=== PATIENT | male | born 1965 | race Caucasian/White ===

== ENCOUNTER 2017-12-28 03:23 | Inpatient (IN) | payer OTHER ==
[2017-12-28] MEDS: METHYLPREDNISOLONE 125 MG INJ IV (04:02)
[2017-12-28 04:46] LABS: ADD MAN DIFF? NO
[2017-12-28 04:48] LABS: WHITE BLOOD COUNT 10.1 10^3/ul (4.8-10.8)
[2017-12-28 04:48] LABS: BASOPHIL # 0.1 10^3/ul (0.0-0.1); BASOPHILS % 0.5 % (0.0-2.0); EOSINOPHILS # 0.3 10^3/ul (0.0-0.5); EOSINOPHILS % 3.4 % (0.0-7.0); HEMATOCRIT 43.1 % (42.0-52.0); HEMOGLOBIN 14.5 g/dl (14.0-18.0); LYMPHOCYTES # 2.4 10^3/ul (0.8-2.9); LYMPHOCYTES % 23.3 % (15.0-51.0); MEAN CORPUSCULAR HEMOGLOBIN 29.3 pg (29.0-33.0); MEAN CORPUSCULAR HGB CONC 33.6 g/dl (32.0-37.0); MEAN CORPUSCULAR VOLUME 87.1 fl (82.0-101.0); MEAN PLATELET VOLUME 12.6 fl (7.4-10.4); MONOCYTE # 0.8 10^3/ul (0.3-0.9); MONOCYTES % 7.8 % (0.0-11.0); NEUTROPHIL # 6.6 10^3/ul (1.6-7.5); NEUTROPHILS % 64.6 % (39.0-77.0); PLATELET COUNT 206 10^3/UL (140-415); RED BLOOD COUNT 4.95 10^6/ul (4.70-6.10); RED CELL DISTRIBUTION WIDTH 13.2 % (11.5-14.5)
[2017-12-28 05:07] LABS: INR 0.95; PROTIME 12.8 Sec (11.9-14.9)
[2017-12-28 05:08] LABS: PARTIAL THROMBOPLASTIN TIME 27.5 Sec (25.0-35.0)
[2017-12-28 05:12] LABS: ALANINE AMINOTRANSFERASE 105 IU/L (13-69); ALBUMIN 4.4 g/dl (3.3-4.9); ALBUMIN/GLOBULIN RATIO 1.33; ALKALINE PHOSPHATASE 140 IU/L (42-121); ANION GAP 20 (8-16); ASPARTATE AMINO TRANSFERASE 84 IU/L (15-46); BILIRUBIN,INDIRECT 0.1 mg/dl (0-1.1); BILIRUBIN,TOTAL 0.1 mg/dl (0.2-1.3); BLOOD UREA NITROGEN 16 mg/dl (7-20); CALCIUM 9.1 mg/dl (8.4-10.2); CARBON DIOXIDE 27 mmol/L (21-31); CHLORIDE 100 mmol/L (97-110); CREATININE 0.63 mg/dl (0.61-1.24); GLUCOSE 327 mg/dl (70-220); POTASSIUM 3.7 mmol/L (3.5-5.1); SODIUM 143 mmol/L (135-144); TOTAL PROTEIN 7.7 g/dl (6.1-8.1)
[2017-12-28 05:15] LABS: LACTIC ACID 2.4 mmol/L (0.5-2.0)
[2017-12-28 05:23] LABS: TROPONIN-I 0.021 ng/ml (0.00-0.12)
[2017-12-28] MEDS: FUROSEMIDE 40 MG INJ IV (05:45)
[2017-12-28] MEDS: NITROGLYCERIN 2% 1 GM OINT PKT TD (05:46)
[2017-12-28] MEDS: CEFEPIME 2GM/50 ML (PMX) 50 ML IVPB (05:46)
[2017-12-28] MEDS: IPRATROPIUM (NEB) 0.5 MG/2.5 ML AMP INH (05:56)
[2017-12-28] MEDS: ALBUTEROL 0.083% (NEB) 2.5 MG/3 ML AMP INH (05:56)
[2017-12-28] MEDS ORDERED: VANCOMYCIN IV PER PHARMACY XX (06:30)
[2017-12-28] MEDS ORDERED: NACL 0.9% 3 ML SYG IV (06:30)
[2017-12-28] MEDS ORDERED: BISACODYL (EC) 5 MG TAB PO (06:30)
[2017-12-28] MEDS ORDERED: DOCUSATE SODIUM 100 MG CAP PO (06:30)
[2017-12-28] MEDS: VANCOMYCIN 1 GM (PMX) 250 ML IVPB (06:44)
[2017-12-28 08:10] LABS: B-TYPE NATRIURETIC PEPTIDE 749 PG/ML (0-125)
[2017-12-28 08:36] LABS: LACTIC ACID 2.1 mmol/L (0.5-2.0)
[2017-12-28 10:24] LABS: HEMOGLOBIN A1C 10.3 % (0-5.9)
[2017-12-28 10:34] LABS: CHOLESTEROL 232 mg/dl (100-200)
[2017-12-28 10:34] LABS: CHOL/HDL RATIO 6.2 RATIO; HDL CHOLESTEROL 37 mg/dl (28-71); LDL CHOLESTEROL,CALCULATED 146 mg/dl; TRIGLYCERIDES 243 mg/dl (0-149)
[2017-12-28 11:14] LABS: LACTIC ACID 2.2 mmol/L (0.5-2.0)
[2017-12-28] MEDS: LOSARTAN 50 MG TAB PO ×2 (12:00→20:52)
[2017-12-28] MEDS: ASPIRIN 81 MG TAB PO (12:15)
[2017-12-28] MEDS: FAMOTIDINE 20 MG TAB PO (12:15)
[2017-12-28] MEDS: VANCOMYCIN 1 GM in 250 ML IVPB ×2 (12:18→19:58)
[2017-12-28] MEDS: CEFEPIME 1GM/50 ML (PMX) 50 ML IVPB ×2 (14:22→22:26)
[2017-12-28 15:34] LABS: TROPONIN-I 0.014 ng/ml (0.00-0.12)
[2017-12-28] MEDS ORDERED: VANCOMYCIN 1 GM in 250 ML IVPB (18:00)
[2017-12-28] MEDS: ATORVASTATIN 20 MG TAB PO (20:52)
[2017-12-29] MEDS: VANCOMYCIN 1 GM in 250 ML IVPB ×3 (05:43→21:37)
[2017-12-29 07:26] LABS: ADD MAN DIFF? NO
[2017-12-29 07:30] LABS: WHITE BLOOD COUNT 12.8 10^3/ul (4.8-10.8)
[2017-12-29 07:30] LABS: BASOPHILS % 0.3 % (0.0-2.0); EOSINOPHILS % 0.1 % (0.0-7.0); HEMATOCRIT 38.7 % (42.0-52.0); HEMOGLOBIN 13.2 g/dl (14.0-18.0); LYMPHOCYTES # 2.4 10^3/ul (0.8-2.9); LYMPHOCYTES % 18.8 % (15.0-51.0); MEAN CORPUSCULAR HEMOGLOBIN 30.2 pg (29.0-33.0); MEAN CORPUSCULAR HGB CONC 34.1 g/dl (32.0-37.0); MEAN CORPUSCULAR VOLUME 88.6 fl (82.0-101.0); MONOCYTE # 1.1 10^3/ul (0.3-0.9); MONOCYTES % 8.5 % (0.0-11.0); NEUTROPHIL # 9.2 10^3/ul (1.6-7.5); NEUTROPHILS % 71.9 % (39.0-77.0); PLATELET COUNT 193 10^3/UL (140-415); RED BLOOD COUNT 4.37 10^6/ul (4.70-6.10); RED CELL DISTRIBUTION WIDTH 13.6 % (11.5-14.5)
[2017-12-29 07:52] LABS: ALANINE AMINOTRANSFERASE 81 IU/L (13-69); ALBUMIN 3.8 g/dl (3.3-4.9); ALBUMIN/GLOBULIN RATIO 1.11; ALKALINE PHOSPHATASE 84 IU/L (42-121); ANION GAP 18 (8-16); ASPARTATE AMINO TRANSFERASE 33 IU/L (15-46); BILIRUBIN,INDIRECT 0.3 mg/dl (0-1.1); BILIRUBIN,TOTAL 0.3 mg/dl (0.2-1.3); BLOOD UREA NITROGEN 23 mg/dl (7-20); CALCIUM 8.6 mg/dl (8.4-10.2); CARBON DIOXIDE 25 mmol/L (21-31); CHLORIDE 104 mmol/L (97-110); CREATININE 0.63 mg/dl (0.61-1.24); GLUCOSE 254 mg/dl (70-220); MAGNESIUM 2.2 mg/dl (1.7-2.5); POTASSIUM 4.1 mmol/L (3.5-5.1); SODIUM 143 mmol/L (135-144); TOTAL PROTEIN 7.2 g/dl (6.1-8.1)
[2017-12-29] MEDS: ASPIRIN 81 MG TAB PO (08:27)
[2017-12-29] MEDS: FAMOTIDINE 20 MG TAB PO (08:27)
[2017-12-29] MEDS: LOSARTAN 50 MG TAB PO (08:28)
[2017-12-29] MEDS: CEFEPIME 1GM/50 ML (PMX) 50 ML IVPB ×2 (09:41→21:36)
[2017-12-29 12:12] LABS: VANCOMYCIN,TROUGH 13.4 ug/ml (10.0-20.0)
[2017-12-29] MEDS: ATORVASTATIN 20 MG TAB PO (21:35)
[2017-12-29] MEDS: ALBUTEROL 0.083% (NEB) 2.5 MG/3 ML AMP HHN (21:51)
[2017-12-30] MEDS: ALBUTEROL 0.083% (NEB) 2.5 MG/3 ML AMP HHN (02:43)
[2017-12-30] MEDS ORDERED: GLUCOSE GEL 15 GRAM TUBE PO ×2 (03:00)
[2017-12-30] MEDS ORDERED: ALBUTEROL/IPRATROPIUM (NEB) 3 ML AMP HHN (03:00)
[2017-12-30] MEDS ORDERED: GUAIFENESIN/DM 5ML CUP PO (03:00)
[2017-12-30] MEDS ORDERED: GLUCAGON 1 MG INJ IM (03:00)
[2017-12-30] MEDS ORDERED: GLUCOSE GEL 15 GRAM TUBE BUCCAL (03:00)
[2017-12-30] MEDS ORDERED: DEXTROSE 50% 50 ML SYRINGE IV ×2 (03:00)
[2017-12-30] MEDS: VANCOMYCIN 1 GM in 250 ML IVPB ×3 (04:54→20:43)
[2017-12-30] MEDS ORDERED: hydrALAzine 20 MG INJ IV (05:30)
[2017-12-30 07:56] LABS: ADD MAN DIFF? NO
[2017-12-30] MEDS: LOSARTAN 50 MG TAB PO (08:00)
[2017-12-30] MEDS: CEFEPIME 1GM/50 ML (PMX) 50 ML IVPB ×2 (08:00→23:18)
[2017-12-30] MEDS: metFORMIN 500 MG TAB PO ×2 (08:00→17:08)
[2017-12-30] MEDS: FAMOTIDINE 20 MG TAB PO (08:00)
[2017-12-30] MEDS: ASPIRIN 81 MG TAB PO (08:00)
[2017-12-30 08:05] LABS: BASOPHIL # 0.1 10^3/ul (0.0-0.1); BASOPHILS % 0.4 % (0.0-2.0); EOSINOPHILS # 0.1 10^3/ul (0.0-0.5); EOSINOPHILS % 0.7 % (0.0-7.0); HEMOGLOBIN 13.4 g/dl (14.0-18.0); LYMPHOCYTES # 2.7 10^3/ul (0.8-2.9); LYMPHOCYTES % 20.5 % (15.0-51.0); MEAN CORPUSCULAR HEMOGLOBIN 29.5 pg (29.0-33.0); MEAN CORPUSCULAR HGB CONC 33.5 g/dl (32.0-37.0); MEAN CORPUSCULAR VOLUME 88.1 fl (82.0-101.0); MEAN PLATELET VOLUME 12.6 fl (7.4-10.4); MONOCYTE # 1.1 10^3/ul (0.3-0.9); MONOCYTES % 8.1 % (0.0-11.0); NEUTROPHIL # 9.3 10^3/ul (1.6-7.5); NEUTROPHILS % 69.9 % (39.0-77.0); PLATELET COUNT 196 10^3/UL (140-415); RED BLOOD COUNT 4.54 10^6/ul (4.70-6.10); RED CELL DISTRIBUTION WIDTH 13.7 % (11.5-14.5)
[2017-12-30 08:05] LABS: WHITE BLOOD COUNT 13.2 10^3/ul (4.8-10.8)
[2017-12-30] MEDS: INSULIN ASPART [NOVOLOG] 3 ML PEN SC ×6 (08:10→20:49)
[2017-12-30] MEDS: ENOXAPARIN 40 MG/0.4 ML SYG SC (08:11)
[2017-12-30 08:40] LABS: MAGNESIUM 1.8 mg/dl (1.7-2.5)
[2017-12-30 08:40] LABS: PHOSPHORUS 3.7 mg/dl (2.5-4.9)
[2017-12-30 08:49] LABS: ANION GAP 15 (8-16); BLOOD UREA NITROGEN 15 mg/dl (7-20); CALCIUM 8.5 mg/dl (8.4-10.2); CARBON DIOXIDE 29 mmol/L (21-31); CHLORIDE 101 mmol/L (97-110); CREATININE 0.59 mg/dl (0.61-1.24); GLUCOSE 214 mg/dl (70-220); POTASSIUM 3.9 mmol/L (3.5-5.1); SODIUM 141 mmol/L (135-144)
[2017-12-30] MEDS: INSULIN GLARGINE [LANtus] 3 ML PEN SC (12:47)
[2017-12-30] MEDS: ACETAMINOPHEN 325 MG TAB PO (20:43)
[2017-12-30] MEDS: ATORVASTATIN 20 MG TAB PO (20:43)
[2017-12-31] MEDS: ACCU-CHEK XX (02:00)
[2017-12-31] MEDS: VANCOMYCIN 1 GM in 250 ML IVPB ×3 (05:07→20:33)
[2017-12-31 07:26] LABS: ADD MAN DIFF? NO
[2017-12-31 07:37] LABS: WHITE BLOOD COUNT 10.2 10^3/ul (4.8-10.8)
[2017-12-31 07:37] LABS: BASOPHILS % 0.4 % (0.0-2.0); EOSINOPHILS # 0.2 10^3/ul (0.0-0.5); EOSINOPHILS % 1.9 % (0.0-7.0); HEMATOCRIT 40.6 % (42.0-52.0); HEMOGLOBIN 13.8 g/dl (14.0-18.0); LYMPHOCYTES # 2.9 10^3/ul (0.8-2.9); MEAN CORPUSCULAR HEMOGLOBIN 30.2 pg (29.0-33.0); MEAN CORPUSCULAR VOLUME 88.8 fl (82.0-101.0); MEAN PLATELET VOLUME 12.5 fl (7.4-10.4); MONOCYTES % 9.4 % (0.0-11.0); NEUTROPHIL # 6.1 10^3/ul (1.6-7.5); NEUTROPHILS % 59.9 % (39.0-77.0); PLATELET COUNT 202 10^3/UL (140-415); RED BLOOD COUNT 4.57 10^6/ul (4.70-6.10); RED CELL DISTRIBUTION WIDTH 13.2 % (11.5-14.5)
[2017-12-31 07:50] LABS: MAGNESIUM 1.9 mg/dl (1.7-2.5)
[2017-12-31 07:50] LABS: PHOSPHORUS 3.6 mg/dl (2.5-4.9)
[2017-12-31 07:51] LABS: ANION GAP 14 (8-16); BLOOD UREA NITROGEN 15 mg/dl (7-20); CALCIUM 8.8 mg/dl (8.4-10.2); CARBON DIOXIDE 28 mmol/L (21-31); CHLORIDE 103 mmol/L (97-110); CREATININE 0.61 mg/dl (0.61-1.24); GLUCOSE 119 mg/dl (70-220); POTASSIUM 3.8 mmol/L (3.5-5.1); SODIUM 141 mmol/L (135-144)
[2017-12-31] MEDS: INSULIN ASPART [NOVOLOG] 3 ML PEN SC ×7 (08:00→20:41)
[2017-12-31] MEDS: FAMOTIDINE 20 MG TAB PO (08:29)
[2017-12-31] MEDS: ASPIRIN 81 MG TAB PO (08:30)
[2017-12-31] MEDS: metFORMIN 500 MG TAB PO ×2 (08:30→17:41)
[2017-12-31] MEDS: INSULIN GLARGINE [LANtus] 3 ML PEN SC (08:34)
[2017-12-31] MEDS: LOSARTAN 50 MG TAB PO (08:36)
[2017-12-31] MEDS: CEFEPIME 1GM/50 ML (PMX) 50 ML IVPB ×2 (10:09→22:16)
[2017-12-31] MEDS: ENOXAPARIN 40 MG/0.4 ML SYG SC (10:17)
[2017-12-31 19:03] LABS: VANCOMYCIN,TROUGH 12.5 ug/ml (10.0-20.0)
[2017-12-31] MEDS: ATORVASTATIN 20 MG TAB PO (20:36)
[2018-01-01] MEDS: ACCU-CHEK XX (02:00)
[2018-01-01] MEDS: VANCOMYCIN 1 GM in 250 ML IVPB ×3 (05:40→20:50)
[2018-01-01 07:01] LABS: ADD MAN DIFF? NO
[2018-01-01 07:07] LABS: BASOPHIL # 0.1 10^3/ul (0.0-0.1); BASOPHILS % 0.6 % (0.0-2.0); EOSINOPHILS # 0.2 10^3/ul (0.0-0.5); HEMATOCRIT 40.9 % (42.0-52.0); HEMOGLOBIN 14.3 g/dl (14.0-18.0); LYMPHOCYTES # 2.7 10^3/ul (0.8-2.9); LYMPHOCYTES % 28.5 % (15.0-51.0); MEAN CORPUSCULAR HEMOGLOBIN 30.2 pg (29.0-33.0); MEAN CORPUSCULAR VOLUME 86.3 fl (82.0-101.0); MEAN PLATELET VOLUME 12.1 fl (7.4-10.4); MONOCYTE # 0.8 10^3/ul (0.3-0.9); MONOCYTES % 8.8 % (0.0-11.0); NEUTROPHIL # 5.7 10^3/ul (1.6-7.5); NEUTROPHILS % 59.7 % (39.0-77.0); PLATELET COUNT 199 10^3/UL (140-415); RED BLOOD COUNT 4.74 10^6/ul (4.70-6.10); RED CELL DISTRIBUTION WIDTH 13.2 % (11.5-14.5)
[2018-01-01 07:07] LABS: WHITE BLOOD COUNT 9.5 10^3/ul (4.8-10.8)
[2018-01-01 07:27] LABS: PHOSPHORUS 4.7 mg/dl (2.5-4.9)
[2018-01-01 07:27] LABS: MAGNESIUM 1.8 mg/dl (1.7-2.5)
[2018-01-01 07:35] LABS: ANION GAP 19 (8-16); BLOOD UREA NITROGEN 12 mg/dl (7-20); CARBON DIOXIDE 22 mmol/L (21-31); CHLORIDE 105 mmol/L (97-110); CREATININE 0.56 mg/dl (0.61-1.24); GLUCOSE 120 mg/dl (70-220); POTASSIUM 3.8 mmol/L (3.5-5.1); SODIUM 142 mmol/L (135-144)
[2018-01-01] MEDS: INSULIN ASPART [NOVOLOG] 3 ML PEN SC ×7 (08:00→20:54)
[2018-01-01] MEDS: LOSARTAN 50 MG TAB PO (08:22)
[2018-01-01] MEDS: metFORMIN 500 MG TAB PO ×2 (08:23→17:27)
[2018-01-01] MEDS: ASPIRIN 81 MG TAB PO (08:24)
[2018-01-01] MEDS: INSULIN GLARGINE [LANtus] 3 ML PEN SC (08:28)
[2018-01-01] MEDS: CEFEPIME 1GM/50 ML (PMX) 50 ML IVPB ×2 (08:36→20:50)
[2018-01-01] MEDS: FAMOTIDINE 20 MG TAB PO (08:41)
[2018-01-01] MEDS: ENOXAPARIN 40 MG/0.4 ML SYG SC (10:22)
[2018-01-01] MEDS: ATORVASTATIN 20 MG TAB PO (20:50)
[2018-01-02] MEDS: ACCU-CHEK XX (02:00)
[2018-01-02] MEDS: VANCOMYCIN 1 GM in 250 ML IVPB (05:17)
[2018-01-02 07:38] LABS: ADD MAN DIFF? NO
[2018-01-02 07:42] LABS: BASOPHIL # 0.1 10^3/ul (0.0-0.1); BASOPHILS % 0.7 % (0.0-2.0); EOSINOPHILS # 0.3 10^3/ul (0.0-0.5); EOSINOPHILS % 2.9 % (0.0-7.0); HEMATOCRIT 40.6 % (42.0-52.0); HEMOGLOBIN 14.1 g/dl (14.0-18.0); LYMPHOCYTES # 2.2 10^3/ul (0.8-2.9); LYMPHOCYTES % 25.3 % (15.0-51.0); MEAN CORPUSCULAR HEMOGLOBIN 30.1 pg (29.0-33.0); MEAN CORPUSCULAR HGB CONC 34.7 g/dl (32.0-37.0); MEAN CORPUSCULAR VOLUME 86.8 fl (82.0-101.0); MONOCYTE # 0.9 10^3/ul (0.3-0.9); MONOCYTES % 9.9 % (0.0-11.0); NEUTROPHIL # 5.4 10^3/ul (1.6-7.5); NEUTROPHILS % 60.9 % (39.0-77.0); PLATELET COUNT 211 10^3/UL (140-415); RED BLOOD COUNT 4.68 10^6/ul (4.70-6.10); RED CELL DISTRIBUTION WIDTH 13.2 % (11.5-14.5)
[2018-01-02 07:42] LABS: WHITE BLOOD COUNT 8.9 10^3/ul (4.8-10.8)
[2018-01-02] MEDS: INSULIN ASPART [NOVOLOG] 3 ML PEN SC ×7 (08:00→20:13)
[2018-01-02 08:08] LABS: ANION GAP 15 (8-16); BLOOD UREA NITROGEN 11 mg/dl (7-20); CALCIUM 9.2 mg/dl (8.4-10.2); CARBON DIOXIDE 25 mmol/L (21-31); CHLORIDE 105 mmol/L (97-110); CREATININE 0.61 mg/dl (0.61-1.24); GLUCOSE 104 mg/dl (70-220); POTASSIUM 3.8 mmol/L (3.5-5.1); SODIUM 141 mmol/L (135-144)
[2018-01-02 08:14] LABS: MAGNESIUM 1.7 mg/dl (1.7-2.5)
[2018-01-02 08:14] LABS: PHOSPHORUS 4.8 mg/dl (2.5-4.9)
[2018-01-02] MEDS: ASPIRIN 81 MG TAB PO (08:32)
[2018-01-02] MEDS: FAMOTIDINE 20 MG TAB PO (08:33)
[2018-01-02] MEDS: ENOXAPARIN 40 MG/0.4 ML SYG SC (08:33)
[2018-01-02] MEDS: LOSARTAN 50 MG TAB PO (08:33)
[2018-01-02] MEDS: metFORMIN 500 MG TAB PO ×2 (08:33→17:30)
[2018-01-02] MEDS: INSULIN GLARGINE [LANtus] 3 ML PEN SC (08:35)
[2018-01-02] MEDS: CEFEPIME 1GM/50 ML (PMX) 50 ML IVPB (08:40)
[2018-01-02] MEDS: ATORVASTATIN 20 MG TAB PO (20:13)
[2018-01-03] MEDS: ACCU-CHEK XX (02:00)
[2018-01-03] MEDS: INSULIN ASPART [NOVOLOG] 3 ML PEN SC ×2 (08:00→08:28)
[2018-01-03] MEDS: metFORMIN 500 MG TAB PO (08:26)
[2018-01-03] MEDS: INSULIN GLARGINE [LANtus] 3 ML PEN SC (08:27)
[2018-01-03] MEDS: ASPIRIN 81 MG TAB PO (08:28)
[2018-01-03] MEDS: FAMOTIDINE 20 MG TAB PO (08:30)
[2018-01-03] MEDS: LOSARTAN 50 MG TAB PO (08:30)
[2018-01-03] MEDS: ENOXAPARIN 40 MG/0.4 ML SYG SC (08:30)
== END 2018-01-03 10:59 | disposition home or self-care (01) | DRG 871 ==
LOC: MS4 12-29 00:39 → E/R 03:23 → MS3 05:41
DX: A41.9 Sepsis, unspecified organism (principal); J18.9 Pneumonia, unspecified organism; J96.01 Acute respiratory failure with hypoxia; I50.31 Acute diastolic (congestive) heart failure; E87.2 Acidosis; R74.0 Nonspecific elevation of levels of transaminase and lactic acid dehydrogenase [LDH]; I16.0 Hypertensive urgency; E11.9 Type 2 diabetes mellitus without complications; E66.9 Obesity, unspecified; I11.0 Hypertensive heart disease with heart failure; E78.00 Pure hypercholesterolemia, unspecified; Z87.891 Personal history of nicotine dependence
CPT/HCPCS: 36415; 71045; 80048; 80053; 80061; 80202; 82962; 83036; 83605; 83735; 83880; 84100; 84443; 84484; 85025; 85610; 85730; 87040; 93005; 93306; 94640; 94644; 94664; 96365; 96366; 96367; 96375; 99291-25